=== PATIENT | female | born 1940 | race Caucasian/White ===

== ENCOUNTER → 2016-07-12 | Outpatient (CLI) | payer MEDICARE ==
--- NOTE | 2016-07-13 16:00 | MR ---
MR pelvis with and without contrast and right hip without contrast HISTORY: Right hip pain, bony pelvic pain Multiplanar multisequence and postcontrast images obtained through the pelvis following 15 cc MultiHa nce IV, small [id number] images obtained through the right hip There are no plain film supplied for correlation. Degenerative disc changes and I suspect a scoliosis present in the lower lumbar spine. There is no ev ident bone marrow edema to suggest fracture involving the right occipital femur. There is bone marrow edema involving the superior pubic ramus extending into the acetabulum, suspect the trabecular pattern within the anterior acetabulum is disrupted, suspect there is a fracture line present. Surrounding marrow edema present within the musculature. Question some marrow edema also at the medial aspect of the acetabulum on the left. There may be associated fracture line at this level. No evident labral tear. No sizable joint effusion. Inferior pubic rami also shows abnormal marrow activity, linear low signal suggestive of nondisplaced fractures bilaterally. IMPRESSION: Pelvic fractures as described bilaterally, recommend noncontrast CT scan of the pelvis wi th bone detail for additional evaluation. A Yellow message has been communicated to Rachel Hopkins MD via the [employer] Critical Result system on 07/13/2016 3:57 PM, Message ID [id number].
== END | disposition home or self-care (01) ==
LOC: RADMRIMAIN 20:04
PROVIDERS: ATTEND Internal Medicine Rheumatology
DX: S32.502A Unspecified fracture of left pubis, initial encounter for closed fracture (principal); S32.501A Unspecified fracture of right pubis, initial encounter for closed fracture
CPT/HCPCS: 72197; 73721; A9577

== ENCOUNTER → 2017-08-18 | Day surgery (SDC) | payer MEDICARE ==
[2017-08-15 10:44] VITALS: BMI 29.3
[~2017-08-18] MED LIST: ALPRAZolam 0.25 MG TAB PO PRN; ALPRAZolam 0.5 MG TAB PO PRN; ASPIRIN 325 MG TAB PO STA; CALCIUM CARBONATE PO SCH; CALCIUM POLYCARBOPHIL 625 MG TAB PO SCH; FERROUS SULFATE 325 MG TAB PO SCH; FOLIC ACID 1 MG TAB PO SCH; FOLIC ACID PO SCH; GLIMEPIRIDE 1 MG TAB PO SCH; HEPARIN SODIUM 1,000 UN/ML (10ML VL) IV ONE; HEPARIN SODIUM 1,000 UN/ML (10ML VL) ONE; HYDROCHLOROTHIAZIDE 25 MG TAB PO SCH; IOPAMIDOL-370 125ML BTL INJ ONE; LIDOCAINE 2% INJ 20 MG/ML (20 ML MDV) ONE; LIDOCAINE 2% INJ 20 MG/ML SQ ONE; METHOTREXATE SODIUM 2.5 MG TAB PO SCH; MIDAZOLAM 2 MG/2 ML VIAL ONE; MULTIVIT PO SCH; NITROGLYCERIN SL TABS 0.4 MG TAB SUBLINGUAL PRN; NON-FORMULARY DRUG (Aspirin [Adult Low Dose Aspirin Ec] 81 MG) PO SCH; NON-FORMULARY DRUG (Losartan Potassium [Cozaar] 100 MG) PO SCH; NON-FORMULARY DRUG (Vit A/Vit C/Vit E/Zinc/Copper [Icaps Softgel] 1 CAP) PO SCH; NON-FORMULARY DRUG (Vitamin B Complex [Vitamin B Complex] 1 EACH) PO SCH; POLYETHYLENE GLYCOL 3350 17 GM POWD.PACK PO SCH; POTASSIUM CHLORIDE ER 10 MEQ TAB.ER.PRT PO SCH; RX INFO: IV CONTRAST WAS GIVEN 1 EACH MISC MISCELLANE PRN; SODIUM CHLORIDE 0.9% 1,000 ML IV SCH; SODIUM CHLORIDE 0.9% 1,000 ML in EMPTY BAG 1 BAG IV ONE; VERAPAMIL 2.5 MG/ML 2 ML AMP ONE; VERAPAMIL SYRINGE (5 MG/10 ML) INTRAARTER ONE; VIT K1 PO SCH; VITAMIN D3 PO SCH; amLODIPine 5 MG TAB PO SCH
[2017-08-18 07:07] LABS: Glucose,Whole Blood 143 mg/dL (75-99)
[2017-08-18 07:11] VITALS: TEMP 98.2
[2017-08-18] MEDS: MIDAZOLAM 2 MG/2 ML VIAL IV ONE ×2 (07:35→07:40)
--- NOTE | 2017-08-18 08:32 | CC ---
CARDIAC CATHETERIZATION REPORT Mrs. Sánchez is a 76-year-old female, known history of hypertension, hyperlipidemia, diabetes mellitus, who has been complaining of chest discomfort radiating to both arms, underwent a myocardial perfusion imaging that revealed evidence of inducible ischemia in the lateral apical wall. In view of that, recommendation was made regarding cardiac catheterization. The procedure as well as the risks and complications were discussed with the patient who is in full understanding and agreement. PROCEDURE: Patient was brought to laborer steel handling after receiving Versed and Benadryl and achieving moderate conscious sedated state. Using Xylocaine anesthesia in the Seldinger technique, a 6-Bengali sheath was introduced in the right radial artery. Selective right and left coronary angiography were performed using 5-Bengali 3.5 bend right and left Regine catheter. Multiple views of the coronary artery including hemiaxial views were obtained. Following that, 5-Bengali tight pigtail catheter introduced in the left ventricle and a 30-degree HODGSON view of the left ventricle was obtained. Following that, the catheter and sheaths were removed. Hemostasis was obtained with deployment of a TR band. There was no immediate complication. Patient is returned to her room in stable condition. Of note, the patient received 4000 units of intravenous heparin as well as intra-arterial verapamil. FINDINGS: FLUOROSCOPY: There is calcification involving the proximal LAD and left circumflex and the right coronary artery. LEFT MAIN: This is a large-sized vessel bifurcating left circumflex and left anterior descending artery. The left main coronary artery has no evidence of obstructive coronary artery disease. LEFT ANTERIOR DESCENDING ARTERY: This is a large-sized vessel reaching towards the apex with a wraparound apex segment giving rise to a large diagonal branch in mid segment. The left anterior descending artery is mildly calcified proximally. It has a plaque of 10% to 20% in the mid segment. The rest of the vessel has no high-grade stenosis. LEFT CIRCUMFLEX: This is a large nondominant vessel giving rise to 2 obtuse marginal branches. The second one is large in caliber. The proximal left circumflex has a 20% plaque. The rest of the vessel has no high-grade stenosis. RIGHT CORONARY ARTERY: This is a dominant vessel large in caliber bifurcating PDA, posterolateral segment and branches. The right coronary artery in mid segment has a 20% plaque after the takeoff of the acute marginal branch the vessel beyond that has no evidence of high-grade stenosis. LEFT VENTRICULOGRAM: Left ventriculogram is performed in 30-degree HODGSON view and revealed a normal left ventricular size and systolic function. The ejection fraction was 60%. There was no significant mitral regurgitation. HEMODYNAMICS: There was no gradient across the aortic valve. The left ventricle end- diastolic pressure was 4 to 6 mmHg. CONCLUSION: 1. Mild triple-vessel coronary artery disease. 2. Normal left ventricular size and systolic function. RECOMMENDATION: In view of the findings, I recommend continue medical therapy with aggressive coronary risk modification that has been initiated. Those findings and recommendation were discussed with the patient and her family and are in full understanding and agreement. MMODL / IJN: [id number] /
--- NOTE | 2017-08-18 08:40 | LTR ---
August 18, 2017 Re: SánchezMelania Dear Dr. Albarado: I had the opportunity to perform cardiac catheterization on Mrs. Sánchez at [facility] on the 18 of August and a full copy of the procedure note will be forwarded to you. In brief, she was was found to have mild triple-vessel coronary artery disease with a preserved left ventricular size and systolic function. Based on those findings, I recommend to continue medical therapy with the aggressive coronary risk modifications we have initiated. Thank you again for allowing me the opportunity to participate in her care. Please feel free to call for any questions. Sincerely yours, MD TERRI SchmidtL / RENEAN: [id number] /
[2017-08-18 09:25] VITALS: PULSE 67
[2017-08-18 09:55] VITALS: BP 134/63; RESP 16
== END | disposition home or self-care (01) ==
LOC: CATHCVL 06:21
PROVIDERS: ATTEND Internal Medicine Interventional Cardiology
DX: I25.10 Atherosclerotic heart disease of native coronary artery without angina pectoris (principal); R94.39 Abnormal result of other cardiovascular function study; I10 Essential (primary) hypertension; E78.2 Mixed hyperlipidemia; E11.9 Type 2 diabetes mellitus without complications; Z79.84 Long term (current) use of oral hypoglycemic drugs; Z79.82 Long term (current) use of aspirin; Z79.52 Long term (current) use of systemic steroids; Z79.899 Other long term (current) drug therapy; Z82.49 Family history of ischemic heart disease and other diseases of the circulatory system; Z88.0 Allergy status to penicillin; Z91.09 Other allergy status, other than to drugs and biological substances
CPT/HCPCS: 93458; C1769 ×3; C1894; J2001; J2250; J1644; Q9967

== ENCOUNTER → 2018-10-09 | Outpatient (CLI) | payer MEDICARE ==
--- NOTE | 2018-10-10 09:55 | MM ---
Reason for exam: screening (asymptomatic). Last mammogram was performed 1 year and 6 months ago. History: Patient is postmenopausal and had first child at age 33. Family history of breast cancer in mother at age 73. Benign right mammotome panel of the right breast, March 27, 2012. Benign excisional biopsy of the right breast, 1998. Took estrogen for 10 years beginning at age 50. Took progesterone for 10 years beginning at age 50. Physical Findings: A clinical breast exam by your physician is recommended on an annual basis and results should be correlated with mammographic findings. MG Screening Mammo w CAD Bilateral CC and MLO view(s) were taken. Prior study comparison: April 25, 2017, bilateral MG 3d screening mammo w/cad. March 28, 2016, bilateral MG screening mammo w CAD. There are scattered fibroglandular densities. Stable benign calcifications. There is no discrete abnormality. No significant changes when compared with prior studies. ASSESSMENT: Benign, BI-RAD 2 RECOMMENDATION: Routine screening mammogram of both breasts in 1 year.
== END | disposition home or self-care (01) ==
LOC: RADMAMWWP 09:44
PROVIDERS: ATTEND Internal Medicine
DX: Z12.31 Encounter for screening mammogram for malignant neoplasm of breast (principal)
CPT/HCPCS: 77067

== ENCOUNTER 2019-10-08 11:23 | Observation (INO) | payer MEDICARE ==
[2019-10-08] MEDS ORDERED: DILTIAZEM DRIP BOLUS FROM BAG 1 MG SOLN IV ONE (11:52)
[2019-10-08] MEDS ORDERED: DILTIAZEM 125 MG in SODIUM CHLORIDE 0.9% 100 ML IV SCH (12:00)
--- NOTE | 2019-10-08 12:01 | ED ---
General Adult HPI - General Chief complaint: Chest Pain Stated complaint: Irregular heartbeat Time Seen by Provider: 10/08/19 11:29 Source: patient, RN notes reviewed, old records reviewed Mode of arrival: wheelchair Limitations: no limitations - History of Present Illness Initial comments: 78-year-old female presenting to the emergency department with new onset atrial fibrillation with RVR. She was seen at her primary care physician's office noted to be in A. fib with a high heart rate and sent to the emergency department for evaluation. She complains of palpitations over the past several weeks. No chest pain. No fever. She also reports bilateral lower extremity edema. She denies abdominal pain. Denies nausea vomiting. - Related Data Home Medications Medication Instructions Recorded Confirmed Acid Reflux Med (Unknown Name) 20 mg PO DAILY 08/15/17 08/18/17 Arthritis Pain 600 mg PO DAILY 08/15/17 08/18/17 Aspirin [Adult Low Dose Aspirin EC] 81 mg PO DAILY 08/15/17 08/18/17 Calcium Carbonate/Vitamin D3 1 each PO DAILY 08/15/17 08/18/17 [Caltrate 600 Plus D3 Tablet] Calcium Polycarbophil [Fiber-Lax] 625 mg PO MOWEFR 08/15/17 08/18/17 Ferrous Sulfate [Feosol] 325 mg PO DAILY 08/15/17 08/18/17 Folic Acid 1 mg PO DAILY 08/15/17 08/18/17 Glimepiride [Amaryl] 1 mg PO AC-LUNCH 08/15/17 08/18/17 Hydrochlorothiazide 25 mg PO DAILY 08/15/17 08/18/17 Losartan Potassium [Cozaar] 100 mg PO HS 08/15/17 08/18/17 Meloxicam [Mobic] 7.5 mg PO BID 08/15/17 08/18/17 Methotrexate Sodium [Methotrexate] 5 tab PO SA 08/15/17 08/18/17 Multivit/Folic Acid/Vit K1 1 each PO DAILY 08/15/17 08/18/17 [One-A-Day Women's 50 Plus Tab] Polyethylene Glycol 3350 [Miralax] 17 gm PO SUTUTHSA 08/15/17 08/18/17 Potassium Chloride ER [K-Dur 10] 10 meq PO DAILY 08/15/17 08/18/17 Simvastatin [Zocor] 20 mg PO HS 08/15/17 08/18/17 Vit A/Vit C/Vit E/Zinc/Copper 1 cap PO BID 08/15/17 08/18/17 [ICAPS SOFTGEL] Vitamin B Complex 1 each PO DAILY 08/15/17 08/18/17 amLODIPine [Norvasc] 5 mg PO HS 08/15/17 08/18/17 metFORMIN HCL 1,000 mg PO BID 08/15/17 08/18/17 Allergies Allergy/AdvReac Type Severity Reaction Status Date / Time aminophylline Allergy Rash/Hives Verified 10/08/19 11:34 Cephalosporins Allergy Rash/Hives Verified 10/08/19 11:34 codeine Allergy Rash/Hives Verified 10/08/19 11:34 cyclizine Allergy Rash/Hives Verified 10/08/19 11:34 cyclobenzaprine Allergy Rash/Hives Verified 10/08/19 11:34 [From Flexeril] doxycycline [From Vibramycin] Allergy Rash/Hives Verified 10/08/19 11:34 ethylenediamine Allergy Rash/Hives Verified 10/08/19 11:34 hydroxyzine Allergy Rash/Hives Verified 10/08/19 11:34 Iodinated Contrast Media Allergy Rash/Hives Verified 10/08/19 11:34 [Iodinated Contrast- Oral and IV Dye] meclizine Allergy Rash/Hives Verified 10/08/19 11:34 Opioids - Morphine Analogues Allergy Rash/Hives Verified 08/15/17 10:30 Penicillins Allergy Rash/Hives Verified 08/15/17 10:30 promethazine Allergy Rash/Hives Verified 08/15/17 10:30 Quinolones Allergy Rash/Hives Verified 08/15/17 10:30 theophylline Allergy Rash/Hives Verified 08/15/17 10:30 tripelennamine Allergy Rash/Hives Verified 08/15/17 10:30 analgesics Allergy Rash/Hives Uncoded 08/15/17 10:30 nickel sulfate Allergy Rash/Hives Uncoded 08/15/17 10:53 Review of Systems ROS Statement: Those systems with pertinent positive or pertinent negative responses have been documented in the HPI. ROS Other: All systems not noted in ROS Statement are negative. Past Medical History Past Medical History: Diabetes Mellitus, Deep Vein Thrombosis (DVT), Eye Disorder, GERD/Reflux, Hearing Disorder / Deafness, Hyperlipidemia, Hypertension, Rheumatoid Arthritis (RA) Additional Past Medical History / Comment(s): hx anemia,glaucoma rt eye History of Any Multi-Drug Resistant Organisms: None Reported Past Surgical History: Appendectomy, Section, Cholecystectomy, Hysterectomy, Orthopedic Surgery, Tonsillectomy Additional Past Surgical History / Comment(s): cataracts-charo, carpal tunnel-rt, kidney stones surgery, rt knee meniscus repair, repair rt shoulder Past Anesthesia/Blood Transfusion Reactions: Previous Problems w/ Anesthesia Additional Past Anesthesia/Blood Transfusion Reaction / Comment(s): low b/p Past Psychological History: Anxiety, Depression Smoking Status: Never smoker - Past Family History Mother Family Medical History: Cancer, Coronary Artery Disease (CAD) Additional Family Medical History / Comment(s): breast cancer General Exam Limitations: no limitations General appearance: alert, in no apparent distress Head exam: Present: atraumatic, normocephalic Eye exam: Present: normal appearance, PERRL ENT exam: Present: normal exam Neck exam: Present: normal inspection. Absent: tenderness, meningismus Respiratory exam: Present: normal lung sounds bilaterally. Absent: respiratory distress, wheezes Cardiovascular Exam: Present: tachycardia, irregular rhythm GI/Abdominal exam: Present: soft. Absent: distended, tenderness, guarding, rebound Extremities exam: Present: pedal edema. Absent: calf tenderness Neurological exam: Present: alert, oriented X3, CN II-XII intact. Absent: motor sensory deficit Psychiatric exam: Present: normal affect, normal mood Skin exam: Present: warm, dry, intact. Absent: cyanosis, diaphoretic Course Vital Signs 10/08/19 10/08/19 11:26 12:18 Temperature 98.1 F Pulse Rate 93 97 Respiratory 18 18 Rate Blood Pressure 123/78 128/70 O2 Sat by Pulse 98 98 Oximetry EKG Findings - EKG Comments: EKG Findings:: EKG: Atrial fibrillation with RVR, rate of 145, QRS duration 80, QTC 484, no ST segment elevation. EKG repeated at 1225, normal sinus rhythm, no ST segment elevation, T-wave inversion in the precordial leads, rate of 85, MN interval 156, QRS duration 78, QTC 428 Medical Decision Making - Medical Decision Making 78-year-old female presenting with new-onset atrial fibrillation with rapid ventricular response. Patient is a stable blood pressure. Workup was initiated, normal CBC, stable hemoglobin, negative troponin, normal electrolytes. She started on Cardizem and heparin in the emergency department. She will be admitted to internal medicine with cardiology on consult. - Lab Data Result diagrams: 10/08/19 11:52 10/08/19 11:52 Lab Results 10/08/19 10/08/19 10/08/19 Range/Units 11:52 11:52 11:52 WBC 11.4 H (3.8-10.6) k/uL RBC 4.70 (3.80-5.40) m/uL Hgb 14.1 (11.4-16.0) gm/dL Hct 42.4 (34.0-46.0) % MCV 90.1 (80.0-100.0) fL MCH 29.9 (25.0-35.0) pg MCHC 33.2 (31.0-37.0) g/dL RDW 14.1 (11.5-15.5) % Plt Count 281 (150-450) k/uL Neutrophils % 76 % Lymphocytes % 16 % Monocytes % 6 % Eosinophils % 1 % Basophils % 0 % Neutrophils # 8.6 H (1.3-7.7) k/uL Lymphocytes # 1.8 (1.0-4.8) k/uL Monocytes # 0.7 (0-1.0) k/uL Eosinophils # 0.1 (0-0.7) k/uL Basophils # 0.0 (0-0.2) k/uL PT 9.9 (9.0-12.0) sec INR 0.9 (<1.2) APTT 25.9 (22.0-30.0) sec Sodium 132 L (137-145) mmol/L Potassium 4.2 (3.5-5.1) mmol/L Chloride 95 L (98-107) mmol/L Carbon Dioxide 25 (22-30) mmol/L Anion Gap 12 mmol/L BUN 7 (7-17) mg/dL Creatinine 0.36 L (0.52-1.04) mg/dL Est GFR (CKD-EPI)AfAm >90 (>60 ml/min/1.73 sqM) Est GFR (CKD-EPI)NonAf >90 (>60 ml/min/1.73 sqM) Glucose 129 H (74-99) mg/dL Calcium 9.7 (8.4-10.2) mg/dL Magnesium 1.9 (1.6-2.3) mg/dL Total Bilirubin 0.6 (0.2-1.3) mg/dL AST 25 (14-36) U/L ALT 22 (4-34) U/L Alkaline Phosphatase 98 (38-126) U/L Troponin I (0.000-0.034) ng/mL Total Protein 7.1 (6.3-8.2) g/dL Albumin 4.7 (3.5-5.0) g/dL 10/08/19 Range/Units 11:52 WBC (3.8-10.6) k/uL RBC (3.80-5.40) m/uL Hgb (11.4-16.0) gm/dL Hct (34.0-46.0) % MCV (80.0-100.0) fL MCH (25.0-35.0) pg MCHC (31.0-37.0) g/dL RDW (11.5-15.5) % Plt Count (150-450) k/uL Neutrophils % % Lymphocytes % % Monocytes % % Eosinophils % % Basophils % % Neutrophils # (1.3-7.7) k/uL Lymphocytes # (1.0-4.8) k/uL Monocytes # (0-1.0) k/uL Eosinophils # (0-0.7) k/uL Basophils # (0-0.2) k/uL PT (9.0-12.0) sec INR (<1.2) APTT (22.0-30.0) sec Sodium (137-145) mmol/L Potassium (3.5-5.1) mmol/L Chloride (98-107) mmol/L Carbon Dioxide (22-30) mmol/L Anion Gap mmol/L BUN (7-17) mg/dL Creatinine (0.52-1.04) mg/dL Est GFR (CKD-EPI)AfAm (>60 ml/min/1.73 sqM) Est GFR (CKD-EPI)NonAf (>60 ml/min/1.73 sqM) Glucose (74-99) mg/dL Calcium (8.4-10.2) mg/dL Magnesium (1.6-2.3) mg/dL Total Bilirubin (0.2-1.3) mg/dL AST (14-36) U/L ALT (4-34) U/L Alkaline Phosphatase (38-126) U/L Troponin I <0.012 (0.000-0.034) ng/mL Total Protein (6.3-8.2) g/dL Albumin (3.5-5.0) g/dL Critical Care Time Critical Care Time: Yes Total Critical Care Time: 35 Disposition Clinical Impression: Atrial fibrillation with RVR Disposition: ADMITTED IP TO THIS HOSP Condition: Stable Is patient prescribed a controlled substance at d/c from ED?: No Referrals: Lizeth Albarado MD [Primary Care Provider] - 1-2 days Decision to Admit Reason: Admit from EC Decision Date: 10/08/19 Decision Time: 13:02
[2019-10-08 12:16] LABS: Basophils % (A) 0 %; Eosinophils # (A) 0.1 k/uL (0-0.7); Eosinophils % (A) 1 %; HCT 42.4 % (34.0-46.0); HGB 14.1 gm/dL (11.4-16.0); Lymphocytes # (A) 1.8 k/uL (1.0-4.8); Lymphocytes % (A) 16 %; MCH 29.9 pg (25.0-35.0); MCHC 33.2 g/dL (31.0-37.0); MCV 90.1 fL (80.0-100.0); Mean Platelet Volume 7.3; Monocytes # (A) 0.7 k/uL (0-1.0); Monocytes % (A) 6 %; Neutrophils # (A) 8.6 k/uL (1.3-7.7); Neutrophils % (A) 76 %; Platelet Count 281 k/uL (150-450); RDW 14.1 % (11.5-15.5); WBC 11.4 k/uL (3.8-10.6)
--- NOTE | 2019-10-08 12:21 | XR ---
EXAMINATION TYPE: XR chest 2V DATE OF EXAM: 10/08/2019 COMPARISON: Chest x-ray March 11, 2011. HISTORY: Irregular heartbeat and chest pain. TECHNIQUE: Frontal and lateral views of the chest are obtained. FINDINGS: There is some chronic parenchymal change without suspicious new focal air space opacity, p leural effusion, or pneumothorax seen. The cardiac silhouette size is enlarged and more prominent fr om prior study without gross chronic change in the aortic knob redemonstrated. The osseous structur es remains somewhat demineralized. Degenerative change of both shoulders redemonstrated. IMPRESSION: Chronic changes with more prominent cardiomegaly, no new suspicious acute pulmonary proc ess.
[2019-10-08 12:23] LABS: ALT 22 U/L (4-34); AST 25 U/L (14-36); African American GFR (CKD) >90 (>60 ml/min/1.73 sqM); Albumin 4.7 g/dL (3.5-5.0); Alkaline Phosphatase 98 U/L (38-126); Anion Gap 12 mmol/L; Blood Urea Nitrogen 7 mg/dL (7-17); Calcium 9.7 mg/dL (8.4-10.2); Carbon Dioxide 25 mmol/L (22-30); Chloride 95 mmol/L (98-107); Glucose 129 mg/dL (74-99); Magnesium 1.9 mg/dL (1.6-2.3); Non-African American GFR(CKD) >90 (>60 ml/min/1.73 sqM); Potassium 4.2 mmol/L (3.5-5.1); Sodium 132 mmol/L (137-145); Total Bilirubin 0.6 mg/dL (0.2-1.3); Total Protein 7.1 g/dL (6.3-8.2)
[2019-10-08 12:26] LABS: INR 0.9 (<1.2); Partial Thromboplastin Time 25.9 sec (22.0-30.0); Prothrombin Time 9.9 sec (9.0-12.0)
[2019-10-08] MEDS ORDERED: ACETAMINOPHEN TAB 325 MG TAB PO PRN (12:59)
[2019-10-08] MEDS ORDERED: HEPARIN SODIUM,PORCINE 5,000 UNIT/ML 1 ML VIAL IV ONE (12:59)
[2019-10-08] MEDS ORDERED: HEPARIN SODIUM,PORCINE 5,000 UNIT/ML 1 ML VIAL IV PRN (12:59)
[2019-10-08] MEDS ORDERED: NALOXONE 0.4 MG/ML 1 ML VIAL IV PRN (12:59)
[2019-10-08] MEDS: HEPARIN SOD,PORK IN 0.45% NACL 25,000 UNIT in 0.45% NACL 1 250ML.BAG IV SCH (14:29)
[2019-10-09 04:34] LABS: Basophils % (A) 0 %; Eosinophils # (A) 0.1 k/uL (0-0.7); Eosinophils % (A) 1 %; HCT 35.8 % (34.0-46.0); HGB 12.2 gm/dL (11.4-16.0); Lymphocytes # (A) 2.5 k/uL (1.0-4.8); Lymphocytes % (A) 24 %; Mean Platelet Volume 7.3; Monocytes # (A) 0.6 k/uL (0-1.0); Monocytes % (A) 6 %; Neutrophils # (A) 7.1 k/uL (1.3-7.7); Neutrophils % (A) 68 %; Platelet Count 232 k/uL (150-450); RBC 3.94 m/uL (3.80-5.40); RDW 14.2 % (11.5-15.5); WBC 10.4 k/uL (3.8-10.6)
[2019-10-09] MEDS ORDERED: NON FORMULARY DRUG (Vitamin B Complex [Vitamin B Complex] 1 EACH) PO SCH (09:00)
[2019-10-09 09:42] LABS: Glucose,Whole Blood 231 mg/dL (75-99)
[2019-10-09] MEDS: METOPROLOL SUCCINATE (ER) 25 MG TAB.ER.24H PO SCH (10:10)
[2019-10-09] MEDS: metFORMIN 500 MG TAB PO SCH ×2 (10:10→16:57)
--- NOTE | 2019-10-09 10:10 | P.CRDCN ---
History of Present Illness Consult date: 10/09/19 Chief complaint: Heart racing History of present illness: This is a very pleasant 78-year-old female patient who sees Dr. Dodd in the office on regular basis with a past medical history significant for coronary artery disease based on heart catheterization in 2018 showing mild triple-vessel CAD, diabetes, hypertension, dyslipidemia, was admitted directly from Dr. Albarado office to the hospital for further evaluation and management of new onset atrial fibrillation. The patient was seen in his office yesterday when she was not feeling well. She was experiencing generalized weakness and fatigue. No specific symptoms of chest pain or chest discomfort, shortness of breath, dizziness, heart racing, or syncope. The EKG in his office showed atrial fibrillation with RVR. The patient subsequently was admitted to the hospital and she was started on Cardizem drip as well as heparin drip. She was converted to normal sinus mechanism. She was started on metoprolol succinate at 25 mg by mouth daily. At this point she denies any symptoms of chest pain or chest discomfort, shortness of breath, dizziness, or any heart racing or fluttering. She never been diagnosed with atrial fibrillation in the past. The cardiac enzymes with troponin were checked and came in to be unremarkable. The rest of her blood work came in to be unremarkable as well. I am going to DC the Cardizem drip and continue Toprol-XL at this point. Beside that we'll get an echocardiogram to evaluate the left ventricular systolic function. Currently she is on heparin IV which we will continue. She is to be on oral anticoagulation down the line in the next 24-48 hours. The SONA-VASC score is at least 4. Past Medical History Past Medical History: Diabetes Mellitus, Deep Vein Thrombosis (DVT), Eye Disorder, GERD/Reflux, Hearing Disorder / Deafness, Hyperlipidemia, Hypertension, Rheumatoid Arthritis (RA) Additional Past Medical History / Comment(s): hx anemia,glaucoma rt eye History of Any Multi-Drug Resistant Organisms: None Reported Past Surgical History: Appendectomy, Section, Cholecystectomy, Hysterectomy, Orthopedic Surgery, Tonsillectomy Additional Past Surgical History / Comment(s): cataracts-charo, carpal tunnel-rt, kidney stones surgery, rt knee meniscus repair, repair rt shoulder Past Anesthesia/Blood Transfusion Reactions: Previous Problems w/ Anesthesia Additional Past Anesthesia/Blood Transfusion Reaction / Comment(s): low b/p Past Psychological History: Anxiety, Depression Smoking Status: Never smoker - Past Family History Mother Family Medical History: Cancer, Coronary Artery Disease (CAD) Additional Family Medical History / Comment(s): breast cancer Medications and Allergies Home Medications Medication Instructions Recorded Confirmed Type Aspirin [Adult Low Dose Aspirin EC] 81 mg PO DAILY 08/15/17 10/08/19 History Calcium Carbonate/Vitamin D3 1 each PO DAILY 08/15/17 10/08/19 History [Caltrate 600 Plus D3 Tablet] Ferrous Sulfate [Feosol] 325 mg PO DAILY 08/15/17 10/08/19 History Folic Acid 1 mg PO DAILY 08/15/17 10/08/19 History Glimepiride [Amaryl] 1 mg PO AC-LUNCH 08/15/17 10/08/19 History Hydrochlorothiazide 25 mg PO DAILY 08/15/17 10/08/19 History Losartan Potassium [Cozaar] 100 mg PO HS 08/15/17 10/08/19 History Meloxicam [Mobic] 7.5 mg PO BID 08/15/17 10/08/19 History Methotrexate Sodium [Methotrexate] 5 tab PO SA 08/15/17 10/08/19 History Multivit/Folic Acid/Vit K1 1 each PO DAILY 08/15/17 10/08/19 History [One-A-Day Women's 50 Plus Tab] Potassium Chloride ER [K-Dur 10] 10 meq PO DAILY 08/15/17 10/08/19 History Simvastatin [Zocor] 20 mg PO HS 08/15/17 10/08/19 History Vit A/Vit C/Vit E/Zinc/Copper 1 cap PO AC-BID 08/15/17 10/08/19 History [ICAPS SOFTGEL] Vitamin B Complex 1 each PO DAILY 08/15/17 10/08/19 History amLODIPine [Norvasc] 5 mg PO HS 08/15/17 10/08/19 History metFORMIN HCL 1,000 mg PO BID 08/15/17 10/08/19 History L.acidoph,Paracasei, B.lactis 1 cap PO DAILY 10/08/19 10/08/19 History [Probiotic] Magnesium Oxide 400 mg PO DAILY@1600 10/08/19 10/08/19 History Omeprazole 20 mg PO QAM 10/08/19 10/08/19 History Allergies Allergy/AdvReac Type Severity Reaction Status Date / Time aminophylline Allergy Rash/Hives Verified 10/08/19 22:11 Cephalosporins Allergy Rash/Hives Verified 10/08/19 22:11 codeine Allergy Rash/Hives Verified 10/08/19 22:11 cyclizine Allergy Rash/Hives Verified 10/08/19 22:11 cyclobenzaprine Allergy Rash/Hives Verified 10/08/19 22:11 [From Flexeril] doxycycline [From Vibramycin] Allergy Rash/Hives Verified 10/08/19 22:11 ethylenediamine Allergy Rash/Hives Verified 10/08/19 22:11 hydroxyzine Allergy Rash/Hives Verified 10/08/19 22:11 Iodinated Contrast Media Allergy Rash/Hives Verified 10/08/19 22:11 [Iodinated Contrast- Oral and IV Dye] meclizine Allergy Rash/Hives Verified 10/08/19 22:11 Opioids - Morphine Analogues Allergy Rash/Hives Verified 10/08/19 22:11 Penicillins Allergy Rash/Hives Verified 10/08/19 22:11 promethazine Allergy Rash/Hives Verified 10/08/19 22:11 Quinolones Allergy Rash/Hives Verified 10/08/19 22:11 theophylline Allergy Rash/Hives Verified 10/08/19 22:11 tripelennamine Allergy Rash/Hives Verified 10/08/19 22:11 analgesics Allergy Rash/Hives Uncoded 08/15/17 10:30 nickel sulfate Allergy Rash/Hives Uncoded 08/15/17 10:53 Physical Exam Vitals: Vital Signs Temp Pulse Resp BP Pulse Ox 10/09/19 09:35 64 18 145/72 97 10/09/19 07:40 98.3 F 64 18 140/70 99 10/09/19 06:29 64 16 149/62 98 10/09/19 03:05 70 16 161/71 100 10/08/19 22:05 98.0 F 60 18 160/69 98 10/08/19 19:45 98.0 F 63 18 157/69 99 10/08/19 18:00 70 18 149/75 100 10/08/19 14:28 86 18 130/67 97 10/08/19 13:00 79 18 126/75 98 10/08/19 12:18 97 18 128/70 98 10/08/19 11:26 98.1 F 93 18 123/78 98 Intake and Output 10/08/19 10/09/19 10/09/19 22:59 06:59 14:59 Intake Total 54.432 68.916 Balance 54.432 68.916 Intake: Intake, IV Titration 54.432 68.916 Amount Heparin Sod,Pork in 0.45% 54.432 68.916 NaCl 25,000 unit In 0.45 % NaCl 1 250ml.bag @ 12 UNITS/KG/HR 9.634 mls/hr IV .Q24H [facility] Rx#: [id number] Other: Voiding Method Toilet - Constitutional General appearance: no acute distress - Respiratory Respiratory: bilateral: CTA - Cardiovascular Rhythm: regular Heart sounds: normal: S1, S2 Abnormal Heart Sounds: systolic murmur Results 10/09/19 04:05 10/08/19 11:52 Cardiac Enzymes 10/08/19 10/08/19 10/08/19 Range/Units 11:52 11:52 18:35 AST 25 (14-36) U/L Troponin I <0.012 <0.012 (0.000-0.034) ng/mL 10/09/19 Range/Units 00:15 AST (14-36) U/L Troponin I <0.012 (0.000-0.034) ng/mL Coagulation 10/08/19 10/08/19 10/09/19 Range/Units 11:52 18:35 04:05 PT 9.9 (9.0-12.0) sec APTT 25.9 67.4 H 42.2 H (22.0-30.0) sec CBC 10/08/19 10/09/19 Range/Units 11:52 04:05 WBC 11.4 H 10.4 (3.8-10.6) k/uL RBC 4.70 3.94 (3.80-5.40) m/uL Hgb 14.1 12.2 (11.4-16.0) gm/dL Hct 42.4 35.8 (34.0-46.0) % Plt Count 281 232 (150-450) k/uL Comprehensive Metabolic Panel 10/08/19 Range/Units 11:52 Sodium 132 L (137-145) mmol/L Potassium 4.2 (3.5-5.1) mmol/L Chloride 95 L (98-107) mmol/L Carbon Dioxide 25 (22-30) mmol/L BUN 7 (7-17) mg/dL Creatinine 0.36 L (0.52-1.04) mg/dL Glucose 129 H (74-99) mg/dL Calcium 9.7 (8.4-10.2) mg/dL AST 25 (14-36) U/L ALT 22 (4-34) U/L Alkaline Phosphatase 98 (38-126) U/L Total Protein 7.1 (6.3-8.2) g/dL Albumin 4.7 (3.5-5.0) g/dL Current Medications Generic Name Dose Route Start Last Admin Trade Name Freq PRN Reason Stop Dose Admin Acetaminophen 650 mg 10/08/19 12:59 Tylenol Tab PO Q6HR PRN Mild Pain or Fever > 100.5 Amlodipine Besylate 5 mg 10/09/19 21:00 Norvasc PO HS [facility] Aspirin 81 mg 10/09/19 09:00 Aspirin PO DAILY [facility] Atorvastatin Calcium 10 mg 10/09/19 21:00 Lipitor PO HS [facility] Calcium Carbonate 1 each 10/09/19 09:00 Oscal 500+D PO DAILY [facility] Ferrous Sulfate 325 mg 10/09/19 09:00 Feosol PO DAILY [facility] Folic Acid 1 mg 10/09/19 09:00 Folic Acid PO DAILY [facility] Glimepiride 1 mg 10/09/19 12:30 Amaryl PO AC-LUNCH [facility] Heparin Sodium (Porcine) 0 unit 10/08/19 12:59 Heparin IV PER PROTOCOL PRN Low PTT Protocol Hydrochlorothiazide 25 mg 10/09/19 09:00 Hydrodiuril PO DAILY [facility] Heparin Sodium/Sodium Chloride 250 mls @ 9.634 mls/hr 10/08/19 13:00 10/09/19 04:43 25,000 unit/ Sodium Chloride IV 12 units/kg/hr .Q24H [facility] 9.634 mls/hr Titration Protocol 12 UNITS/KG/HR Lactobacillus Acidoph/Bulgaricus 1 each 10/09/19 09:00 Lactinex PO DAILY [facility] Losartan Potassium 100 mg 10/09/19 21:00 Cozaar PO HS [facility] Magnesium Oxide 400 mg 10/09/19 16:00 Mag-Ox PO DAILY@1600 [facility] Metformin HCl 1,000 mg 10/09/19 09:00 Glucophage PO BID-W/MEALS [facility] Methotrexate 12.5 mg 10/12/19 09:00 Methotrexate PO SA [facility] Metoprolol Succinate 25 mg 10/09/19 09:00 Toprol Xl PO DAILY [facility] Multivitamins 1 each 10/09/19 09:00 Theragran PO DAILY [facility] Multivitamins/Minerals 1 each 10/09/19 17:30 Ivite PO AC-BID [facility] Naloxone HCl 0.2 mg 10/08/19 12:59 Narcan IV Q2M PRN Opioid Reversal Pantoprazole Sodium 40 mg 10/09/19 09:00 Protonix PO AC-BRKFST [facility] Potassium Chloride 10 meq 10/09/19 09:00 K-Dur 10 PO DAILY [facility] Intake and Output 10/08/19 10/09/19 10/09/19 22:59 06:59 14:59 Intake Total 54.432 68.916 Balance 54.432 68.916 Intake: Intake, IV Titration 54.432 68.916 Amount Heparin Sod,Pork in 0.45% 54.432 68.916 NaCl 25,000 unit In 0.45 % NaCl 1 250ml.bag @ 12 UNITS/KG/HR 9.634 mls/hr IV .Q24H [facility] Rx#: [id number] Other: Voiding Method Toilet 10/09/19 04:05 10/08/19 11:52 Assessment and Plan Assessment: Assessment #1 paroxysmal atrial fibrillation. New onset. Currently the patient is in normal sinus mechanism #2 mild nonobstructive coronary artery disease #3 diabetes type 2 #4 hypertension #5 dyslipidemia Plan #1 continue the current medical regimen with heparin IV #2 consider oral anticoagulation in the next 24 hours #3 DC Cardizem IV #4 continue Toprol-XL #5 obtain an echocardiogram was Doppler #6 follow-up with the patient
[2019-10-09] MEDS: ASPIRIN 81 MG PO SCH (10:11)
[2019-10-09] MEDS: MULTIVITAMINS, THERA 1 EACH TAB PO SCH (10:11)
[2019-10-09] MEDS: PANTOPRAZOLE 40 MG TABLET PO SCH (10:11)
[2019-10-09] MEDS: LACTOBACILLUS ACIDOPH & BULGAR 1 EACH PACKET PO SCH (10:11)
[2019-10-09] MEDS: FERROUS SULFATE 325 MG TAB PO SCH (10:11)
[2019-10-09] MEDS: CALCIUM CARB-VIT D 500MG-200UN 1 EACH TAB PO SCH (10:11)
[2019-10-09] MEDS: FOLIC ACID 1 MG TAB PO SCH (10:11)
[2019-10-09] MEDS: POTASSIUM CHLORIDE ER 10 MEQ TAB.ER.PRT PO SCH (10:11)
[2019-10-09] MEDS: HYDROCHLOROTHIAZIDE 25 MG TAB PO SCH (10:11)
[2019-10-09 11:02] LABS: African American GFR (CKD) >90 (>60 ml/min/1.73 sqM); Anion Gap 10 mmol/L; Blood Urea Nitrogen 9 mg/dL (7-17); Calcium 8.6 mg/dL (8.4-10.2); Carbon Dioxide 25 mmol/L (22-30); Chloride 98 mmol/L (98-107); Glucose 236 mg/dL (74-99); Non-African American GFR(CKD) >90 (>60 ml/min/1.73 sqM); Potassium 3.9 mmol/L (3.5-5.1); Sodium 133 mmol/L (137-145)
[2019-10-09] MEDS: GLIMEPIRIDE 1 MG TAB PO SCH (12:06)
--- NOTE | 2019-10-09 14:11 | P.HPIM ---
History of Present Illness H&P Date: 10/09/19 This is a 78-year-old female patientof Dr. Albarado and Dr. Dodd with a past medical history of coronary artery disease with heart catheterization in 2018 showing mild triple-vessel CAD, diabetes mellitus type II, hypertension, dyslipidemia. Patient was seen in the office of Dr. Albarado yesterday was diagnosed with atrial fibrillation with RVR. Patient was complaining of generalized weakness and fatigue. No chest pain, shortness of breath, dizziness lightheadedness or palpitations. Patient was sent directly to [facility] emergency center for evaluation. She was started on Cardizem drip and heparin drip and converted to normal sinus mechanism. She was started on metoprolol succinate 25 mg daily. Patient is holding in the emergency center for cardiac stepdown bed, cardiology consult obtained and echocardiogram ordered. WBC 11.4, hemoglobin 14.1, sodium 132, chloride 95, creatinine 0.36, blood sugar 129. Troponins of the negative on 3 draws, liver function tests normal. Chest x-ray shows chronic changes with more prominent cardiomegaly, no new suspicious acute pulmonary process. Review of Systems Constitutional: Reports fatigue, Reports weakness, Denies anorexia, Denies chills, Denies fever, Denies poor appetite Eyes: denies blurred vision, denies pain Ears, nose, mouth and throat: Denies dysphagia, Denies headache, Denies nasal congestion, Denies nasal discharge, Denies sore throat, Denies vertigo Cardiovascular: Denies chest pain, Denies dyspnea on exertion, Denies shortness of breath, Denies syncope Respiratory: Denies cough, Denies cough with sputum, Denies dyspnea, Denies excessive sputum, Denies hemoptysis, Denies home oxygen, Denies wheezing Gastrointestinal: Denies abdominal pain, Denies diarrhea, Denies loss of appetite, Denies nausea, Denies vomiting Genitourinary: Denies dysuria, Denies hematuria, Denies urgency, Denies urinary frequency Menstruation: Reports postmenopausal Musculoskeletal: Denies frequent falls, Denies gait dysfunction, Denies myalgias Integumentary: Denies pruritus, Denies rash, Denies wounds Neurological: Denies change in mentation, Denies change in speech, Denies double vision, Denies numbness, Denies weakness Psychiatric: Denies anxiety, Denies depression Endocrine: Reports fatigue, Denies weight change Past Medical History Past Medical History: Atrial Fibrillation, Diabetes Mellitus, Deep Vein Thrombosis (DVT), Eye Disorder, GERD/Reflux, Hearing Disorder / Deafness, Hyperlipidemia, Hypertension, Rheumatoid Arthritis (RA) Additional Past Medical History / Comment(s): hx anemia,glaucoma rt eye History of Any Multi-Drug Resistant Organisms: None Reported Past Surgical History: Appendectomy, Section, Cholecystectomy, Hysterectomy, Orthopedic Surgery, Tonsillectomy Additional Past Surgical History / Comment(s): cataracts-charo, carpal tunnel-rt, kidney stones surgery, rt knee meniscus repair, repair rt shoulder Past Anesthesia/Blood Transfusion Reactions: Previous Problems w/ Anesthesia Additional Past Anesthesia/Blood Transfusion Reaction / Comment(s): low b/p Past Psychological History: Anxiety, Depression Smoking Status: Never smoker - Past Family History Mother Family Medical History: Cancer, Coronary Artery Disease (CAD) Additional Family Medical History / Comment(s): breast cancer Medications and Allergies Home Medications Medication Instructions Recorded Confirmed Type Aspirin [Adult Low Dose Aspirin EC] 81 mg PO DAILY 08/15/17 10/08/19 History Calcium Carbonate/Vitamin D3 1 each PO DAILY 08/15/17 10/08/19 History [Caltrate 600 Plus D3 Tablet] Ferrous Sulfate [Iron (65 MG 325 mg PO DAILY 08/15/17 10/08/19 History Elemental)] Folic Acid 1 mg PO DAILY 08/15/17 10/08/19 History Glimepiride [Amaryl] 1 mg PO AC-LUNCH 08/15/17 10/08/19 History Hydrochlorothiazide 25 mg PO DAILY 08/15/17 10/08/19 History Losartan Potassium [Cozaar] 100 mg PO HS 08/15/17 10/08/19 History Methotrexate Sodium [Methotrexate] 5 tab PO SA 08/15/17 10/08/19 History Multivit/Folic Acid/Vit K1 1 each PO DAILY 08/15/17 10/08/19 History [One-A-Day Women's 50 Plus Tab] Potassium Chloride ER [K-Dur 10] 10 meq PO DAILY 08/15/17 10/08/19 History Simvastatin [Zocor] 20 mg PO HS 08/15/17 10/08/19 History Vit A/Vit C/Vit E/Zinc/Copper 1 cap PO AC-BID 08/15/17 10/08/19 History [ICAPS SOFTGEL] Vitamin B Complex 1 each PO DAILY 08/15/17 10/08/19 History amLODIPine [Norvasc] 5 mg PO HS 08/15/17 10/08/19 History metFORMIN HCL 1,000 mg PO BID 08/15/17 10/08/19 History L.acidoph,Paracasei, B.lactis 1 cap PO DAILY 10/08/19 10/08/19 History [Probiotic] Magnesium Oxide 400 mg PO DAILY@1600 10/08/19 10/08/19 History Omeprazole 20 mg PO QAM 10/08/19 10/08/19 History Apixaban [Eliquis] 5 mg PO BID #60 tab 10/10/19 Rx Metoprolol Succinate (ER) [Toprol 25 mg PO DAILY #30 tab.er.24h 10/10/19 Rx XL] Allergies Allergy/AdvReac Type Severity Reaction Status Date / Time aminophylline Allergy Rash/Hives Verified 10/08/19 22:11 Cephalosporins Allergy Rash/Hives Verified 10/08/19 22:11 codeine Allergy Rash/Hives Verified 10/08/19 22:11 cyclizine Allergy Rash/Hives Verified 10/08/19 22:11 cyclobenzaprine Allergy Rash/Hives Verified 10/08/19 22:11 [From Flexeril] doxycycline [From Vibramycin] Allergy Rash/Hives Verified 10/08/19 22:11 ethylenediamine Allergy Rash/Hives Verified 10/08/19 22:11 hydroxyzine Allergy Rash/Hives Verified 10/08/19 22:11 Iodinated Contrast Media Allergy Rash/Hives Verified 10/08/19 22:11 [Iodinated Contrast- Oral and IV Dye] meclizine Allergy Rash/Hives Verified 10/08/19 22:11 Opioids - Morphine Analogues Allergy Rash/Hives Verified 10/08/19 22:11 Penicillins Allergy Rash/Hives Verified 10/08/19 22:11 promethazine Allergy Rash/Hives Verified 10/08/19 22:11 Quinolones Allergy Rash/Hives Verified 10/08/19 22:11 theophylline Allergy Rash/Hives Verified 10/08/19 22:11 tripelennamine Allergy Rash/Hives Verified 10/08/19 22:11 analgesics Allergy Rash/Hives Uncoded 04/03/18 10:30 nickel sulfate Allergy Rash/Hives Uncoded 08/15/17 10:53 Physical Exam Vitals: Vital Signs Temp Pulse Resp BP Pulse Ox 10/09/19 09:35 64 18 145/72 97 10/09/19 07:40 98.3 F 64 18 140/70 99 10/09/19 06:29 64 16 149/62 98 10/09/19 03:05 70 16 161/71 100 10/08/19 22:05 98.0 F 60 18 160/69 98 10/08/19 19:45 98.0 F 63 18 157/69 99 10/08/19 18:00 70 18 149/75 100 10/08/19 14:28 86 18 130/67 97 10/08/19 13:00 79 18 126/75 98 Intake and Output 10/08/19 10/09/19 10/09/19 22:59 06:59 14:59 Intake Total 54.432 68.916 Balance 54.432 68.916 Intake: Intake, IV Titration 54.432 68.916 Amount Heparin Sod,Pork in 0.45% 54.432 68.916 NaCl 25,000 unit In 0.45 % NaCl 1 250ml.bag @ 12 UNITS/KG/HR 9.634 mls/hr IV .Q24H [facility] Rx#: [id number] Other: Voiding Method Toilet Gen: This is a 78-year-old obese female. Patient is resting in bed and appears to be comfortable and in no acute distress. HEENT: Head is atraumatic, normocephalic. Pupils equal, round. Sclerae is anic teric. NECK: Supple. No JVD. No lymphadenopathy. No thyromegaly. LUNGS: Clear to auscultation. No wheezes or rhonchi. No intercostal retractions. HEART: Regular rate and rhythm. 2/6 murmur. ABDOMEN: Soft. Bowel sounds are present. No masses. No tenderness. EXTREMITIES: No pedal edema. No calf tenderness. Dorsalis pedis +2 bilaterally. NEUROLOGICAL: Patient is awake, alert and oriented x3. Cranial nerves 2 through 12 are grossly intact. Results CBC & Chem 7: 10/10/19 06:18 10/09/19 09:43 Labs: Abnormal Lab Results - Last 24 Hours (Table) 10/08/19 10/08/19 10/09/19 Range/Units 11:52 18:35 04:05 APTT 67.4 H 42.2 H (22.0-30.0) sec Sodium 132 L (137-145) mmol/L Chloride 95 L (98-107) mmol/L Creatinine 0.36 L (0.52-1.04) mg/dL Glucose 129 H (74-99) mg/dL POC Glucose (mg/dL) (75-99) mg/dL 10/09/19 10/09/19 10/09/19 Range/Units 09:40 09:43 09:43 APTT 46.8 H (22.0-30.0) sec Sodium 133 L (137-145) mmol/L Chloride (98-107) mmol/L Creatinine 0.40 L (0.52-1.04) mg/dL Glucose 236 H (74-99) mg/dL POC Glucose (mg/dL) 231 H (75-99) mg/dL Thrombosis Risk Factor Assmnt - DVT/VTE Prophylaxis DVT/VTE Prophylaxis: Pharmacologic Prophylaxis ordered Assessment and Plan Plan: 1. New onset atrial fibrillation with RVR, converted to normal sinus rhythm. Most likely patient has paroxysmal atrial fibrillation. Cardiology consult appreciated. Continue Toprol-XL 25 mg daily, IV heparin, echocardiogram. 2. History of nonobstructive coronary artery disease, stable. Continue aspirin 81 mg daily, Lipitor. 3. Diabetes mellitus type 2. Continue glimepiride 1 mg at lunch, metformin 1000 mg twice daily. 4. Hypertension. Continue amlodipine 5 mg at bedtime, losartan 100 mg at bedtime, hydrochlorothiazide 25 mg daily, and continue metoprolol. 5. Hyperlipidemia. Continue atorvastatin 10 mg at bedtime 6. History of GERD. Protonix daily. 7. History of rheumatoid arthritis. Continue methotrexate 12.5 mg on Monday. 8. Glaucoma right eye. Continue vitamins. 9. History of DVT. 10. COVID-19 infection not present. 11. GI prophylaxis. Protonix daily area and 12. DVT prophylaxis. Heparin drip. 13. Anemia of chronic disease. Continue ferrous sulfate 325 mg daily, folic acid 1 mg daily. Patient will be admitted to the hospital for a minimum of 2 night stay. Discharge plan: Home in next 24 hours Impression and plan of care have been directed as dictated by the signing physician. Angelina Prado nurse practitioner acting as scribe for signing physician.
[2019-10-09] MEDS ORDERED: MAGNESIUM OXIDE 400 MG TAB PO SCH (16:00)
[2019-10-09 16:46] LABS: Glucose,Whole Blood 84 mg/dL (75-99)
[2019-10-09] MEDS: INSULIN ASPART (NovoLOG) 100 UNIT/ML VIAL SQ SCH ×2 (16:54→20:34)
[2019-10-09] MEDS: VIT A,C & E-LUTEIN-MINERALS 1 EACH TAB PO SCH (16:58)
[2019-10-09] MEDS: HEPARIN SOD,PORK IN 0.45% NACL 25,000 UNIT in 0.45% NACL 1 250ML.BAG IV SCH (19:51)
[2019-10-09 20:30] LABS: Glucose,Whole Blood 183 mg/dL (75-99)
--- NOTE | 2019-10-09 20:36 | ECHOF ---
Referral Reason:a.fib MEASUREMENTS -------- HEIGHT: 162.6 cm WEIGHT: 80.3 kg BP: 165/75 IVSd: 1.3 cm (0.6 - 1.1) LVIDd: 3.9 cm (3.9 - 5.3) LVPWd: 1.3 cm (0.6 - 1.1) IVSs: 1.7 cm LVIDs: 2.8 cm LVPWs: 1.7 cm LA Diam: 3.0 cm (2.7 - 3.8) RVIDd: 3.1 cm (< 3.3) LAESV Index (A-L): 26.74 ml/m Ao Diam: 3.0 cm (2.0 - 3.7) AV Cusp: 1.9 cm (1.5 - 2.6) EPSS: 0.5 cm MV E Saleem: 0.81 m/s MV DecT: 273 ms MV A Saleem: 0.97 m/s MV E/A Ratio: 0.84 RAP: 5.00 mmHg RVSP: 25.72 mmHg MV EF SLOPE: 67.59 mm/s (70 - 150) MV EXCURSION: 17.25 mm (> 18.000) FINDINGS -------- Sinus rhythm. This was a technically adequate study. The left ventricular size is normal. There is mild concentric left ventricular hypertrophy. Overa ll left ventricular systolic function is normal with, an EF between 60 - 65 %. The right ventricle is normal in size. Normal LA size by volume 22+/-6 ml/m2. The right atrium is normal in size. Interatrial and interventricular septum intact. There is mild aortic valve sclerosis. The mitral valve leaflets are mildly thickened. Mild mitral annular calcification present. There is trace to mild mitral regurgitation. Mild tricuspid regurgitation present. Right ventricular systolic pressure is normal at < 35 mmHg. The pulmonic valve was not well visualized. The aortic root size is normal. Normal inferior vena cava with normal inspiratory collapse consistent with estimated right atrial pre ssure of 5 mmHg. There is no pericardial effusion. CONCLUSIONS -------- 1. Sinus rhythm. 2. This was a technically adequate study. 3. The left ventricular size is normal. 4. There is mild concentric left ventricular hypertrophy. 5. Overall left ventricular systolic function is normal with, an EF between 60 - 65 %. 6. The right ventricle is normal in size. 7. Normal LA size by volume 22+/-6 ml/m2. 8. The right atrium is normal in size. 9. Interatrial and interventricular septum intact. 10. There is mild aortic valve sclerosis. 11. The mitral valve leaflets are mildly thickened. 12. Mild mitral annular calcification present. 13. There is trace to mild mitral regurgitation. 14. Mild tricuspid regurgitation present. 15. Right ventricular systolic pressure is normal at < 35 mmHg. 16. The pulmonic valve was not well visualized. 17. The aortic root size is normal. 18. Normal inferior vena cava with normal inspiratory collapse consistent with estimated right atrial pressure of 5 mmHg. 19. There is no pericardial effusion. DATA COMMUNICATIONS ANALYST: Mariann Mccray RDCS
[2019-10-09] MEDS ORDERED: LOSARTAN 50 MG TAB PO SCH (21:00)
[2019-10-09] MEDS ORDERED: ATORVASTATIN 10 MG TAB PO SCH (21:00)
[2019-10-09] MEDS ORDERED: amLODIPine 5 MG TAB PO SCH (21:00)
[2019-10-10 06:08] LABS: Glucose,Whole Blood 129 mg/dL (75-99)
[2019-10-10] MEDS: INSULIN ASPART (NovoLOG) 100 UNIT/ML VIAL SQ SCH ×2 (06:12→12:52)
[2019-10-10] MEDS: PANTOPRAZOLE 40 MG TABLET PO SCH (06:18)
[2019-10-10 06:58] LABS: Basophils % (A) 0 %; Eosinophils # (A) 0.2 k/uL (0-0.7); Eosinophils % (A) 2 %; HCT 42.2 % (34.0-46.0); HGB 13.2 gm/dL (11.4-16.0); Lymphocytes # (A) 2.1 k/uL (1.0-4.8); Lymphocytes % (A) 23 %; MCH 28.6 pg (25.0-35.0); MCHC 31.3 g/dL (31.0-37.0); MCV 91.3 fL (80.0-100.0); Mean Platelet Volume 7.4; Monocytes # (A) 0.5 k/uL (0-1.0); Monocytes % (A) 5 %; Neutrophils # (A) 6.4 k/uL (1.3-7.7); Neutrophils % (A) 69 %; Platelet Count 242 k/uL (150-450); RBC 4.63 m/uL (3.80-5.40); RDW 14.2 % (11.5-15.5); WBC 9.3 k/uL (3.8-10.6)
[2019-10-10] MEDS: METOPROLOL SUCCINATE (ER) 25 MG TAB.ER.24H PO SCH (08:43)
[2019-10-10] MEDS: FOLIC ACID 1 MG TAB PO SCH (08:43)
[2019-10-10] MEDS: POTASSIUM CHLORIDE ER 10 MEQ TAB.ER.PRT PO SCH (08:43)
[2019-10-10] MEDS: CALCIUM CARB-VIT D 500MG-200UN 1 EACH TAB PO SCH (08:44)
[2019-10-10] MEDS: FERROUS SULFATE 325 MG TAB PO SCH (08:44)
[2019-10-10] MEDS: MULTIVITAMINS, THERA 1 EACH TAB PO SCH (08:44)
[2019-10-10] MEDS: HYDROCHLOROTHIAZIDE 25 MG TAB PO SCH (08:44)
[2019-10-10] MEDS: LACTOBACILLUS ACIDOPH & BULGAR 1 EACH PACKET PO SCH (08:45)
[2019-10-10] MEDS: ASPIRIN 81 MG PO SCH (08:50)
[2019-10-10] MEDS: metFORMIN 500 MG TAB PO SCH (08:50)
[2019-10-10 08:55] VITALS: RESP 16; TEMP 98.3
[2019-10-10] MEDS ORDERED: APIXABAN 5 MG TAB PO SCH (09:15)
--- NOTE | 2019-10-10 10:41 | P.PN ---
Subjective Progress Note Date: 10/10/19 This is a very pleasant 78-year-old female patient who sees Dr. Dodd in the office on regular basis with a past medical history significant for coronary artery disease based on heart catheterization in 2018 showing mild triple-vessel CAD, diabetes, hypertension, dyslipidemia, was admitted directly from Dr. Albarado office to the hospital for further evaluation and management of new onset atrial fibrillation. The patient was seen in his office yesterday when she was not feeling well. She was experiencing generalized weakness and fatigue. No specific symptoms of chest pain or chest discomfort, shortness of breath, dizziness, heart racing, or syncope. The EKG in his office showed atrial fibrillation with RVR. The patient subsequently was admitted to the hospital and she was started on Cardizem drip as well as heparin drip. She was converted to normal sinus mechanism. She was started on metoprolol succinate at 25 mg by mouth daily. At this point she denies any symptoms of chest pain or chest discomfort, shortness of breath, dizziness, or any heart racing or fluttering. She never been diagnosed with atrial fibrillation in the past. The cardiac enzymes with troponin were checked and came in to be unremarkable. The rest of her blood work came in to be unremarkable as well. I am going to DC the Cardizem drip and continue Toprol-XL at this point. Beside that we'll get an echocardiogram to evaluate the left ventricular systolic function. Currently she is on heparin IV which we will continue. She is to be on oral anticoagulation down the line in the next 24-48 hours. The SONA-VASC score is at least 4. 10/10/2019 Patient was seen and examined this morning, currently in a normal sinus rhythm. Echocardiogram with Doppler study revealed a normal left ventricular systolic fu nction. We will discontinue her IV heparin today and initiate Eliquis 5 mg one tablet by mouth twice a day. Patient has been educated regarding the importance of taking anticoagulation for stroke prevention. Objective - Vital Signs Vital signs: Vital Signs Temp 98.3 F 10/10/19 08:00 Pulse 70 10/10/19 08:00 Resp 16 10/10/19 08:00 BP 141/64 10/10/19 08:00 Pulse Ox 98 10/10/19 08:00 Intake & Output 05/27/20 05/28/20 05/28/20 18:59 06:59 18:59 Intake Total 240 Balance 240 Weight 80.2 kg Intake: Oral 240 Other: Voiding Method Toilet # Voids 3 - Exam PHYSICAL EXAMINATION: GENERAL: 79-year-old female in no acute distress at the time of my examination HEENT: Head is atraumatic, normocephalic. Pupils equal, round. Sclera anicteric. Conjunctiva are clear. Mucous membranes of the mouth are moist. Neck is supple. There is no elevated jugular venous pressure. No carotid bruit is heard. HEART EXAMINATION: Heart S1, S2 normal. No murmur or gallop heard. CHEST EXAMINATION: Lungs are clear to auscultation and precussion. No chest wall tenderness is noted on palpation or with deep breathing. ABDOMEN: Soft, nontender. Bowel sounds are heard. No organomegaly noted. EXTREMITIES: 2+ peripheral pulses with no evidence of peripheral edema and no calf tenderness noted. NEUROLOGIC patient is awake, alert and oriented 3 . . - Labs CBC & Chem 7: 10/10/19 06:18 10/09/19 09:43 Labs: Abnormal Lab Results - Last 24 Hours (Table) 10/09/19 10/09/19 10/10/19 Range/Units 09:43 20:28 06:04 APTT (22.0-30.0) sec Sodium 133 L (137-145) mmol/L Creatinine 0.40 L (0.52-1.04) mg/dL Glucose 236 H (74-99) mg/dL POC Glucose (mg/dL) 183 H 129 H (75-99) mg/dL 10/10/19 Range/Units 06:18 APTT 50.5 H (22.0-30.0) sec Sodium (137-145) mmol/L Creatinine (0.52-1.04) mg/dL Glucose (74-99) mg/dL POC Glucose (mg/dL) (75-99) mg/dL Assessment and Plan Plan: Assessment and plan #1 paroxysmal atrial fibrillation. New onset. Currently the patient is in normal sinus mechanism #2 mild nonobstructive coronary artery disease #3 diabetes type 2 #4 hypertension #5 dyslipidemia Plan Echocardiogram with Doppler study revealed a normal left ventricular systolic function. We will discontinue the IV heparin and start the patient on Eliquis 5 mg one tablet by mouth twice a day. From cardiology's perspective, patient may be able to be discharged home today. We will make a follow-up appointment in the office with Dr. Minor post discharge. DNP note has been reviewed, I agree with a documented findings and plan of care. Patient was seen and examined.
[2019-10-10 11:14] LABS: Glucose,Whole Blood 142 mg/dL (75-99)
--- NOTE | 2019-10-10 12:28 | P.DS ---
Providers Date of admission: 10/08/19 13:12 Expected date of discharge: 10/10/19 Attending physician: Lizeth Albarado Consults: 10/08/19 13:00 Consult Physician Routine Consulting Provider: Darrion Dodd Consult Reason/Comments: New-onset atrial fibrillation with RVR Do you want consulting provider notified?: Yes Primary care physician: Lizeth Albarado [facility] Course: This is a 78-year-old female patientof Dr. Albarado and Dr. Dodd with a past medical history of coronary artery disease with heart catheterization in 2018 showing mild triple-vessel CAD, diabetes mellitus type II, hypertension, dyslipidemia. Patient was seen in the office of Dr. Albarado yesterday was diagnosed with atrial fibrillation with RVR. Patient was complaining of generalized weakness and fatigue. No chest pain, shortness of breath, dizziness lightheadedness or palpitations. Patient was sent directly to [facility] emergency center for evaluation. She was started on Cardizem drip and heparin drip and converted to normal sinus mechanism. She was started on metoprolol succinate 25 mg daily. Patient is holding in the emergency center for cardiac stepdown bed, cardiology consult obtained and echocardiogram ordered. WBC 11.4, hemoglobin 14.1, sodium 132, chloride 95, creatinine 0.36, blood sugar 129. Troponins of the negative on 3 draws, liver function tests normal. Chest x-ray shows chronic changes with more prominent cardiomegaly, no new suspicious acute pulmonary process. 10/09: Echocardiogram reveals EF of 60-65% with trace to mild mitral regurgitation, mild tricuspid regurgitation. Patient remains in a sinus rhythm. Patient's been afebrile, heart rate 70, blood pressure 141/64, pulse ox 98% on room air. She denies having any chest pain or palpitations. Patient's been instructed to limit caffeine intake. Cardiology has seen and plan is to start eliquis and discontinue heparin drip. Patient is to follow with Dr. Lopes in the office. Patient will be discharged home today in stable condition. Discharge diagnoses: 1. New onset atrial fibrillation with RVR, converted to normal sinus rhythm, paroxysmal atrial fibrillation. 2. History of nonobstructive coronary artery disease, stable. 3. Diabetes mellitus type 2. 4. Hypertension. 5. Hyperlipidemia. 6. History of GERD. 7. History of rheumatoid arthritis. 8. Glaucoma right eye. 9. History of DVT. 10. COVID-19 infection not present. 11. Anemia of chronic disease. Discharge plan: Home Impression and plan of care have been directed as dictated by the signing physician. Angelina Prado nurse practitioner acting as scribe for signing physician. Patient Condition at Discharge: Good Plan - Discharge Summary New Discharge Prescriptions: New Apixaban [Eliquis] 5 mg PO BID #60 tab Metoprolol Succinate (ER) [Toprol XL] 25 mg PO DAILY #30 tab.er.24h Continue Multivit/Folic Acid/Vit K1 [One-A-Day Women's 50 Plus Tab] 1 each PO DAILY Vitamin B Complex 1 each PO DAILY Calcium Carbonate/Vitamin D3 [Caltrate 600 Plus D3 Tablet] 1 each PO DAILY Aspirin [Adult Low Dose Aspirin EC] 81 mg PO DAILY Methotrexate Sodium [Methotrexate] 5 tab PO SA Folic Acid 1 mg PO DAILY Ferrous Sulfate [Iron (65 MG Elemental)] 325 mg PO DAILY Simvastatin [Zocor] 20 mg PO HS Potassium Chloride ER [K-Dur 10] 10 meq PO DAILY Hydrochlorothiazide 25 mg PO DAILY amLODIPine [Norvasc] 5 mg PO HS Losartan Potassium [Cozaar] 100 mg PO HS metFORMIN HCL 1,000 mg PO BID Glimepiride [Amaryl] 1 mg PO AC-LUNCH Vit A/Vit C/Vit E/Zinc/Copper [ICAPS SOFTGEL] 1 cap PO AC-BID L.acidoph,Paracasei, B.lactis [Probiotic] 1 cap PO DAILY Magnesium Oxide 400 mg PO DAILY@1600 Omeprazole 20 mg PO QAM Discontinued Meloxicam [Mobic] 7.5 mg PO BID Discharge Medication List Aspirin [Adult Low Dose Aspirin EC] 81 mg PO DAILY 08/15/17 [History] Calcium Carbonate/Vitamin D3 [Caltrate 600 Plus D3 Tablet] 1 each PO DAILY 08/15/17 [History] Ferrous Sulfate [Iron (65 MG Elemental)] 325 mg PO DAILY 08/15/17 [History] Folic Acid 1 mg PO DAILY 08/15/17 [History] Glimepiride [Amaryl] 1 mg PO AC-LUNCH 08/15/17 [History] Hydrochlorothiazide 25 mg PO DAILY 08/15/17 [History] Losartan Potassium [Cozaar] 100 mg PO HS 08/15/17 [History] Methotrexate Sodium [Methotrexate] 5 tab PO SA 08/15/17 [History] Multivit/Folic Acid/Vit K1 [One-A-Day Women's 50 Plus Tab] 1 each PO DAILY 08/15/17 [History] Potassium Chloride ER [K-Dur 10] 10 meq PO DAILY 08/15/17 [History] Simvastatin [Zocor] 20 mg PO HS 08/15/17 [History] Vit A/Vit C/Vit E/Zinc/Copper [ICAPS SOFTGEL] 1 cap PO AC-BID 08/15/17 [History] Vitamin B Complex 1 each PO DAILY 08/15/17 [History] amLODIPine [Norvasc] 5 mg PO HS 08/15/17 [History] metFORMIN HCL 1,000 mg PO BID 08/15/17 [History] L.acidoph,Paracasei, B.lactis [Probiotic] 1 cap PO DAILY 10/08/19 [History] Magnesium Oxide 400 mg PO DAILY@1600 10/08/19 [History] Omeprazole 20 mg PO QAM 10/08/19 [History] Apixaban [Eliquis] 5 mg PO BID #60 tab 10/10/19 [Rx] Metoprolol Succinate (ER) [Toprol XL] 25 mg PO DAILY #30 tab.er.24h 10/10/19 [Rx] Follow up Appointment(s)/Referral(s): Lizeth Albarado MD [Primary Care Provider] - 1 Week Pete Lopes MD [STAFF PHYSICIAN] - 1 Week Discharge Disposition: HOME SELF-CARE
[2019-10-10] MEDS: VIT A,C & E-LUTEIN-MINERALS 1 EACH TAB PO SCH (13:12)
[2019-10-10] MEDS: GLIMEPIRIDE 1 MG TAB PO SCH (13:12)
[2019-10-10 14:39] VITALS: BP 159/84; PULSE 67
[2019-10-10 17:22] LABS: Hemoglobin A1C 6.3 % (4.0-6.0)
[2019-10-12] MEDS ORDERED: METHOTREXATE SODIUM 2.5 MG TAB PO SCH (09:00)
== END 2019-10-10 14:46 | disposition home or self-care (01) ==
LOC: EC 11:23 → 2SICU 13:12 → 3SCARD 19:11
PROVIDERS: ADMIT Internal Medicine; ATTEND Internal Medicine
DX: I48.0 Paroxysmal atrial fibrillation (principal); I11.9 Hypertensive heart disease without heart failure; I08.1 Rheumatic disorders of both mitral and tricuspid valves; D63.8 Anemia in other chronic diseases classified elsewhere; I25.10 Atherosclerotic heart disease of native coronary artery without angina pectoris; E78.5 Hyperlipidemia, unspecified; E11.9 Type 2 diabetes mellitus without complications; K21.9 Gastro-esophageal reflux disease without esophagitis; H40.9 Unspecified glaucoma; M06.9 Rheumatoid arthritis, unspecified; H91.90 Unspecified hearing loss, unspecified ear; F41.9 Anxiety disorder, unspecified; F32.9 Major depressive disorder, single episode, unspecified; R60.0 Localized edema; Z11.59 Encounter for screening for other viral diseases; Z79.82 Long term (current) use of aspirin; Z79.84 Long term (current) use of oral hypoglycemic drugs; Z79.1 Long term (current) use of non-steroidal anti-inflammatories (NSAID); Z79.899 Other long term (current) drug therapy; Z88.1 Allergy status to other antibiotic agents; Z88.6 Allergy status to analgesic agent; Z91.041 Radiographic dye allergy status; Z88.5 Allergy status to narcotic agent; Z88.0 Allergy status to penicillin; Z88.8 Allergy status to other drugs, medicaments and biological substances; Z91.048 Other nonmedicinal substance allergy status; Z86.718 Personal history of other venous thrombosis and embolism; Z90.49 Acquired absence of other specified parts of digestive tract; Z98.891 History of uterine scar from previous surgery; Z90.710 Acquired absence of both cervix and uterus; Z87.442 Personal history of urinary calculi; Z98.42 Cataract extraction status, left eye; Z98.41 Cataract extraction status, right eye; Z82.49 Family history of ischemic heart disease and other diseases of the circulatory system; Z80.3 Family history of malignant neoplasm of breast
CPT/HCPCS: 96366 ×3; 96376; 96368 ×2; 96365; 99291; 36415; 93005 ×2; 93306; 80053; 80048; 83735; 84484 ×2; 85025 ×3; 85610; 85730 ×3; 83036; 87635; 71046; G0378 ×4; J1644 ×2

== ENCOUNTER → 2020-03-11 | Outpatient (CLI) | payer MEDICARE ==
--- NOTE | 2020-03-11 14:07 | XR ---
EXAMINATION TYPE: XR Hip Complete LT, XR femur LT DATE OF EXAM: 03/11/2020 CLINICAL HISTORY: Pain after fall injury. TECHNIQUE: AP and frogleg views of the left hip and femur are obtained. COMPARISON: None. FINDINGS: Osseous structures are demineralized which is noted to lower radiographic sensitivity. Ther e is no acute fracture/dislocation evident in the left hip. Moderate to severe axial joint space loss left hip with mild/moderate acetabular spurring. The overlying soft tissue appears unremarkable. Images of left femur show no acute fracture or dislocation. Moderate to severe tricompartment joint s pace loss and visualized left knee. Overlying clothing material is present. Some arteriovascular calc ification noted medially. IMPRESSION: There is no acute fracture or dislocation in the left femur or hip.
--- NOTE | 2020-03-11 14:27 | US ---
EXAMINATION TYPE: US venous doppler duplex LE LT DATE OF EXAM: 03/11/2020 1:17 PM COMPARISON: NONE CLINICAL HISTORY: M79.605 Pain in left leg. Left leg pain and swelling, patient on blood thinners SIDE PERFORMED: Left TECHNIQUE: The lower extremity deep venous system is examined utilizing real time linear array sonog pattie with graded compression, doppler sonography and color-flow sonography. VESSELS IMAGED: External Iliac Vein (EIV) Common Femoral Vein Deep Femoral Vein Greater Saphenous Vein * Femoral Vein Popliteal Vein Small Saphenous Vein * Proximal Calf Veins (* superficial vessels) Left Leg: Appears negative for DVT Grayscale, color doppler, spectral doppler imaging performed of the deep veins of the left lower extr emity. There is normal flow, compressibility, vascular waveforms. IMPRESSION: No ultrasound evidence for acute DVT in the left lower extremity.
== END | disposition home or self-care (01) ==
LOC: RADUSWWP 12:51
PROVIDERS: ATTEND Internal Medicine
DX: M79.605 Pain in left leg (principal); M25.552 Pain in left hip
CPT/HCPCS: 73502